=== PATIENT | female | born 1990 ===

== ENCOUNTER 2018-11-22 13:15 | Emergency (ER) | payer OTHER ==
[2018-11-22 13:35] VITALS: BP 121/80; PULSE 89; RESP 18; TEMP 98.4; O2SAT 100
--- NOTE | 2018-11-22 14:17 | ED PDOC ---
HPI: General Adult Time Seen by Provider: 11/22/18 14:01 Chief Complaint (Nursing): Breast Problem Chief Complaint (Provider): Right Breast Pain, Sore Throat History Per: Patient History/Exam Limitations: no limitations Onset/Duration Of Symptoms: Days (x4 for breast pain), Intermittent Episodes (x1 month, worse x3 days) Current Symptoms Are (Timing): Still Present Additional Complaint(s): 28 year old female presents to the ED for evaluation of right breast pain for the past four days. Patient notes she is not breast feeding and had a normal mammogram just last year. Additionally, she reports having intermittent episodes of throat pain for the past month, constant for the past three days. Denies fever and chills. PMD: none provided Past Medical History Reviewed: Historical Data, Nursing Documentation, Vital Signs Vital Signs: Last Vital Signs Temp 98.4 F 11/22/18 13:29 Pulse 89 11/22/18 13:29 Resp 18 11/22/18 13:29 BP 121/80 11/22/18 13:29 Pulse Ox 100 11/22/18 13:29 Primary Care Provider: Darrell Myers - Medical History PMH: No Chronic Diseases - Surgical History Surgical History: No Surg Hx - Family History Family History: States: Unknown Family Hx - Social History Current smoker - smoking cessation education provided: No - Home Medications Home Medications: Ambulatory Orders Medication Instructions Recorded Ibuprofen [Motrin] 600 mg PO Q8 PRN #21 tab 11/22/18 Penicillin VK [Penicillin VK Tab] 1 tab PO QID #40 tab 11/22/18 - Allergies Allergies/Adverse Reactions: Allergies Allergy/AdvReac Type Severity Reaction Status Date / Time No Known Allergies Allergy Verified 11/22/18 13:29 Review of Systems ROS Statement: Except As Marked, All Systems Reviewed And Found Negative Constitutional: Negative for: Fever, Chills ENT: Positive for: Throat Pain Musculoskeletal: Positive for: Other (breast pain) Physical Exam - Reviewed Nursing Documentation Reviewed: Yes Vital Signs Reviewed: Yes - Physical Exam Appears: Positive for: No Acute Distress Head Exam: Positive for: ATRAUMATIC, NORMOCEPHALIC Skin: Positive for: Normal Color, Warm ENT: Positive for: Normal ENT Inspection, Pharynx Is (within normal limits). Negative for: Pharyngeal Erythema, Tonsillar Exudate, Tonsillar Swelling Neck: Positive for: Normal, Painless ROM, Supple Cardiovascular/Chest: Positive for: Regular Rate, Rhythm Respiratory: Positive for: Normal Breath Sounds. Negative for: Respiratory Distress Lymphatic: Negative for: Adenopathy Neurological/Psych: Positive for: Awake, Alert, Oriented (x3) Comments: Breast Exam: (+) tenderness near areola, (-) erythema, (-) obvious cyst, (-) axillary lymphadenopathy, (-) draining, (-) discharge - ECG O2 Sat by Pulse Oximetry: 100 (RA) Pulse Ox Interpretation: Normal - Progress ED Course And Treament: rapid strep: positive Medical Decision Making Medical Decision Making: Time: 1410 Initial Impression: right breast pain, r/o strep Initial Plan: --U-preg --Rapid strep ScribeAttestation: Documented Brianna Duncan acting as a scribe for Nelson Rosario PA-C. Provider ScribeAttestation: All medical record entries made by the Scribe were at my direction and personally dictated by me. I have reviewed the chart and agree that the record accurately reflects my personal performance of the history, physical exam, medical decision making, and the department course for this patient. I have also personally directed, reviewed, and agree with the discharge instructions and disposition. Disposition - Clinical Impression Clinical Impression: Pain of breast, Strep pharyngitis - Patient ED Disposition Is Patient to be Admitted: No - Disposition [facility] Disposition: Routine/Home Disposition Time: 14:59 Condition: FAIR Prescriptions: Ibuprofen [Motrin] 600 mg PO Q8 PRN #21 tab PRN Reason: Pain, Moderate (4-7) Penicillin VK [Penicillin VK Tab] 1 tab PO QID #40 tab Instructions: Mastalgia, Strep Throat (DC), Common Breast Problems Forms: [facility] ED School/Work Excuse Print Language: BULGARIAN
== END 2018-11-22 15:07 | disposition home or self-care (01) ==
LOC: H.ER 13:15
DX: J02.0 Streptococcal pharyngitis (principal); N64.4 Mastodynia